=== PATIENT | male | born 1990 | race Caucasian/White ===

== ENCOUNTER 2018-09-16 09:06 | Emergency (ER) | payer OTHER ==
[~2018-09-16] VITALS: Ht 182.9 cm; Wt 90.7 kg
[2018-09-16] MEDS ORDERED: MIRALAX17 GM PO (10:44)
[2018-09-16 10:53] VITALS: BP 132/88
== END 2018-09-16 10:54 | disposition home or self-care (01) ==
LOC: ER 09:06
DX: R10.31 Right lower quadrant pain (principal); Z88.0 Allergy status to penicillin